=== PATIENT | male | born 1985 | race Caucasian/White ===

== ENCOUNTER 2017-06-30 05:19 | Emergency (ER) | payer OTHER ==
[~2017-06-30] VITALS: Ht 180.3 cm; Wt 86.2 kg
[2017-06-30] MEDS ORDERED: KEFLEX500 MG PO (07:01)
[2017-06-30 07:18] VITALS: BP 117/62
== END 2017-06-30 07:18 | disposition home or self-care (01) ==
LOC: ER 05:19
DX: S61.411A Laceration without foreign body of right hand, initial encounter (principal); F90.9 Attention-deficit hyperactivity disorder, unspecified type; F17.210 Nicotine dependence, cigarettes, uncomplicated; W25.XXXA Contact with sharp glass, initial encounter; Y93.89 Activity, other specified; Y92.810 Car as the place of occurrence of the external cause; Y99.8 Other external cause status

== ENCOUNTER 2019-08-12 12:17 | Emergency (ER) | payer OTHER ==
[~2019-08-12] VITALS: Ht 182.9 cm; Wt 88.5 kg
[~2019-08-12 12:17] MED LIST: KEFLEX500 MG PO
[2019-08-12] MEDS ORDERED: ADDERALL XR 3030 MG PO (12:38)
[2019-08-12 14:08] LABS: ABSOLUTE NEUTROPHILS 5.6 thou/uL (1.4-8.2); BASOPHILS 0.7 % (0.0-2.0); EOSINOPHILS 1.1 % (0.0-3.0); HEMATOCRIT 53.9 % (42.0-52.0); MCH 31.7 pg (26.0-34.0); MCHC 33.5 g/dL (28.0-37.0); MCV 94.7 fL (80.0-100.0); MONOCYTES 10.7 % (1.0-8.0); PLATELET COUNT 237 thou/uL (150-400); POLYS 65.5 % (36.0-66.0); RBC 5.69 mil/uL (4.50-6.00); RDW 13.2 % (10.5-14.5); WBC 8.5 thou/uL (4.0-11.0)
[2019-08-12 14:16] LABS: CALCIUM 9.1 mg/dL (8.5-10.1); CREATININE 0.9 mg/dL (0.7-1.3); POTASSIUM 3.7 mmol/L (3.5-5.1)
[2019-08-12 14:25] LABS: PROTIME 10.1 Seconds (9.3-11.4)
[2019-08-12] MEDS ORDERED: NORFLEX100 MG PO (15:04)
[2019-08-12] MEDS ORDERED: MOBIC7.5 MG PO (15:04)
[2019-08-12 15:14] VITALS: BP 127/70
== END 2019-08-12 15:15 | disposition home or self-care (01) ==
LOC: ER 12:17
PROVIDERS: Nurse Practitioner Family
DX: S16.1XXA Strain of muscle, fascia and tendon at neck level, initial encounter (principal); R59.1 Generalized enlarged lymph nodes; F90.9 Attention-deficit hyperactivity disorder, unspecified type; F17.210 Nicotine dependence, cigarettes, uncomplicated; Z79.899 Other long term (current) drug therapy; V49.49XA Driver injured in collision with other motor vehicles in traffic accident, initial encounter; Y93.89 Activity, other specified; Y92.89 Other specified places as the place of occurrence of the external cause; Y99.8 Other external cause status